=== PATIENT | male | born 1990 | race African-American/Black ===

== ENCOUNTER 2023-06-27 18:59 | Emergency (ER) | payer OTHER, SELFPAY ==
[2023-06-27 19:28] VITALS: BP 132/80; PULSE 82; RESP 14; TEMP 36.8; O2SAT 100
[2023-06-27 20:26] LABS: Influenza A QL RT-PCR Negative (Negative); Influenza B QL RT-PCR Negative (Negative); RSV RNA, RT-PCR Negative (Negative); SARS-CoV-2 RNA PCR Negative (Negative)
--- NOTE | 2023-06-27 20:26 | PC.NURSE ---
Pt reports symptoms started in March of last year, states s/s have gotten worse 2-3 weeks ago. Pt reports a real bad headache starting today and came into ED for evaluation.
[2023-06-27 20:27] VITALS: RESP 18
--- NOTE | 2023-06-27 21:45 | ED.GENADULT ---
HPI - General Adult General Chief complaint: Unspecified Stated complaint: couple issues - unable to sleep/eat Time Seen by Provider: 06/27/23 20:34 Source: patient Mode of arrival: ambulatory Limitations: no limitations History of Present Illness HPI narrative: This is a 32-year-old male who presents to the ED with chief complaint of URI symptoms for the past 2 months. Reports nonproductive cough. Also reports rhinorrhea and nasal congestion. Reports chest tightness with the cough. Denies fevers, chills, chest pain, shortness of breath, abdominal pain, nausea, vomiting. Related Data Allergies Allergy/AdvReac Type Severity Reaction Status Date / Time No Known Allergies Allergy Verified 06/27/23 20:28 Review of Systems Review of Systems: All systems as dictated in HPI Exam Narrative: GENERAL: Well-appearing, well-nourished, and in no acute distress. HEAD: Normocephalic, atraumatic. EYES: PERRLA and EOMI. ENT: Bilateral maxillary sinus tenderness. Nasal congestion present. Mucous membranes moist. Oropharynx without tonsillar hypertrophy exudate or other lesions. NECK: Supple. No adenopathy or masses. CHEST: No respiratory distress. Mild bilateral expiratory wheezes. 100% room air HEART: Regular rate and rhythm. No murmur heard. Normal peripheral pulses. ABDOMEN: Soft, nontender, nondistended, normal active bowel sounds. MSK: Normal range of motion. No edema. SKIN: Warm, dry, no rash. NEURO: Alert and oriented x3. No focal deficits. PSYCH: Normal mood and affect. Course Vital Signs Vital signs: Vital Signs Temperature 98.3 F 06/27/23 19:28 Pulse Rate 82 06/27/23 19:28 Respiratory Rate 14 06/27/23 19:28 Blood Pressure 132/80 06/27/23 19:28 Pulse Oximetry 100 06/27/23 19:28 Oxygen Delivery Room Air 06/27/23 19:28 Temperature 98.3 F 06/27/23 19:28 Pulse Rate 82 06/27/23 19:28 Respiratory Rate 18 06/27/23 20:27 Blood Pressure 132/80 06/27/23 19:28 Pulse Oximetry 100 06/27/23 19:28 Oxygen Delivery Room Air 06/27/23 19:28 Medical Decision Making MDM Narrative Medical decision making narrative: This is a 32-year-old male who presents to the ED with chief complaint of chest tightness and cough for the past couple of months. Also reports sinus congestion and pressure. Vitals are normal. Exam shows mild wheezes bilaterally. Overall symptoms are consistent with sinusitis and bronchitis. I had ordered a breathing treatment for this wheezing on exam but patient shortly eloped after being seen. Was not able to complete discharge instructions or re-evaluation after breathing treatment for this wheezing. I did have Augmentin and prednisone prescribed for sinusitis and bronchitis. Vital Signs Vital Signs: Vital Signs Temperature 98.3 F 06/27/23 19:28 Pulse Rate 82 06/27/23 19:28 Respiratory Rate 14 06/27/23 19:28 Blood Pressure 132/80 06/27/23 19:28 Pulse Oximetry 100 06/27/23 19:28 Oxygen Delivery Room Air 06/27/23 19:28 Temperature 98.3 F 06/27/23 19:28 Pulse Rate 82 06/27/23 19:28 Respiratory Rate 18 06/27/23 20:27 Blood Pressure 132/80 06/27/23 19:28 Pulse Oximetry 100 06/27/23 19:28 Oxygen Delivery Room Air 06/27/23 19:28 Lab Data Labs: Lab Results 06/27/23 Range/Units 19:37 Influenza A (RT-PCR) Negative (Negative) Influenza B (RT-PCR) Negative (Negative) RSV (RT-PCR) Negative (Negative) SARS-CoV-2 RNA (RT-PCR) Negative (Negative) Discharge Plan Discharge Clinical Impression: Sinusitis, Bronchitis Patient Disposition: Elopement After Seen by Prov Condition: Stable Instructions: Antibiotic Form Additional Instructions: Your exam today is consistent with bronchitis. This is probably caused by chronic sinusitis. Take antibiotics and steroids as prescribed. If you have any new or worsening symptoms please return to the ER for further evaluation.
== END 2023-06-27 22:05 | disposition left against medical advice (07) ==
PROVIDERS: Emergency Medicine; Emergency Provider Physician Assistant
DX: J40 Bronchitis, not specified as acute or chronic (principal); J32.9 Chronic sinusitis, unspecified; Z20.822 Contact with and (suspected) exposure to COVID-19
CPT/HCPCS: 87637; 99283